=== PATIENT | male | born 1975 | race Hispanic/Latino ===

== ENCOUNTER 2016-06-17 13:15 | Day surgery (SDC) | payer OTHER ==
[~2016-06-17] VITALS: Ht 172.7 cm; Wt 88.9 kg
[~2016-06-17 13:15] MED LIST: ADVAIR HFA120 INHALA IH; ALEVE220 MG PO; MICARDIS40 MG PO; NEURONTIN600 MG PO; PROAIR HFA8.5 GM IH
== END 2016-06-17 14:29 | disposition home or self-care (01) ==
LOC: PAIN 13:15 → SDC 13:45 → PAIN 13:45
PROC: 3E0T3BZ Introduction of Anesthetic Agent into Peripheral Nerves and Plexi, Percutaneous Approach (ICD-10-PCS; principal; 2016-06-17)
PROC: 3E0T33Z Introduction of Anti-inflammatory into Peripheral Nerves and Plexi, Percutaneous Approach (ICD-10-PCS; 2016-06-17)
PROC: BR161ZZ Fluoroscopy of Lumbar Facet Joint(s) using Low Osmolar Contrast (ICD-10-PCS; 2016-06-17)
DX: M47.26 Other spondylosis with radiculopathy, lumbar region (principal); M51.26 Other intervertebral disc displacement, lumbar region; G89.29 Other chronic pain; M47.22 Other spondylosis with radiculopathy, cervical region; I10 Essential (primary) hypertension; G25.81 Restless legs syndrome; Z87.09 Personal history of other diseases of the respiratory system
CPT/HCPCS: J1030; J2250; J3010; S0020

== ENCOUNTER 2016-06-24 08:03 | Day surgery (SDC) | payer OTHER ==
[~2016-06-24] VITALS: Ht 172.7 cm; Wt 88.9 kg
== END 2016-06-24 09:40 | disposition home or self-care (01) ==
LOC: PAIN 08:03 → SDC 08:45 → PAIN 09:40
DX: M51.16 Intervertebral disc disorders with radiculopathy, lumbar region (principal); I10 Essential (primary) hypertension; J45.909 Unspecified asthma, uncomplicated; M54.12 Radiculopathy, cervical region; G25.81 Restless legs syndrome
CPT/HCPCS: J1030; J2250; J3010; S0020